=== PATIENT | male | born 1975 | race Caucasian/White ===

== ENCOUNTER → 2021-12-06 | Outpatient (CLI) | payer OTHER ==
[~2021-12-06] MED LIST: Advil200 M1 PO; BENADRYL25 MG PO; FISH OIL 1,0001 EAC1 PO; Flomax0.4 MG PO; Norco 5-325 Ta1 EACH PO; PROBIOTIC1 EAC1 PO; Zofran Odt8 MG SL
== END | disposition home or self-care (01) ==
LOC: LAB 12:45 → LAB SHORT 12:45
DX: R10.9 Unspecified abdominal pain (principal)
CPT/HCPCS: 87086

== ENCOUNTER 2024-01-04 08:01 | Inpatient (IN) | payer OTHER ==
[~2024-01-04] VITALS: Ht 185.4 cm; Wt 88.5 kg
[2024-01-04 08:50] LABS: EOSINOPHILS ABSOLUTE AUTO 0.01 K/mm3 (0.00-0.68); EOSINOPHILS PERCENT AUTO 0 % (0-6); Hematocrit 48.5 % (37.0-53.0); Hemoglobin 16.7 g/dL (13.5-17.5); IMMATURE GRAN ABSOLUTE AUTO 0.57 K/mm3 (0.00-0.10); IMMATURE GRAN PERCENT AUTO 1 % (0-1); LYMPHOCYTES ABSOLUTE AUTO 1.17 K/mm3 (0.84-5.20); LYMPHOCYTES PERCENT AUTO 2 % (21-46); MONOCYTES ABSOLUTE AUTO 3.27 K/mm3 (0.16-1.47); MONOCYTES PERCENT AUTO 6 % (4-13); Mean Corpuscular HGB 30.3 pg (26.0-34.0); Mean Corpuscular HGB Conc 34.4 g/dL (31.5-36.5); Mean Corpuscular Volume 88 fL (80-100); Mean Platelet Volume 11.4 fL (9.1-12.4); NEUTROPHILS ABSOLUTE AUTO 45.67 K/mm3 (1.96-9.15); NEUTROPHILS PERCENT AUTO 90 % (41-73); Platelet Count 351 K/mm3 (150-400); RDW Coefficient Variation 13.4 % (11.7-14.2); RDW Standard Deviation 43.5 fL (35.1-46.3); Red Blood Cell Count 5.51 M/mm3 (4.30-5.90)
[2024-01-04 08:52] LABS: BASOPHILS ABSOLUTE AUTO 0.05 K/mm3 (0.00-0.23); BASOPHILS PERCENT AUTO 0 % (0-2)
[2024-01-04 08:53] LABS: White Blood Cell Count 50.74 K/mm3 (4.00-11.30)
[2024-01-04] MEDS ORDERED: NS 1,000 ML IV SCH ×4 (08:55→15:00)
[2024-01-04 09:04] LABS: Ethanol (Alcohol), Blood, Med <3 mg/dL; Salicylate 2.2 mg/dL (2.8-20.0)
[2024-01-04 09:06] LABS: Alanine Aminotransfer (ALT/SGP 38 U/L (12-78); Albumin, Blood 4.3 g/dL (3.4-5.0); Albumin/Globulin Ratio 1.3 (0.8-1.8); Alk Phos 96 U/L (50-136); Anion Gap 18 mmol/L (3-11); Aspartate Aminotrans (AST/SGOT 139 U/L (12-37); Bilirubin, Total 1.1 mg/dL (0.1-1.0); Blood Urea Nitrogen 20 mg/dL (8-24); Bun/Creatinine Ratio 14.1 (12.0-20.0); CO2, Blood 21 mmol/L (21-32); Calcium, Blood 9.5 mg/dL (8.5-10.1); Chloride, Blood 108 mmol/L (98-108); Creatinine, Blood 1.42 mg/dL (0.60-1.20); Globulin, Blood 3.3 g/dL (2.2-4.0); Glomerular Filtration Rate 61 (60-); Glucose, Blood 117 mg/dL (70-99); Potassium, Blood 4.2 mmol/L (3.5-5.5); Sodium, Blood 143 mmol/L (136-145); Total Protein, Blood 7.6 g/dL (6.4-8.2)
[2024-01-04 09:07] LABS: Acetaminophen, Random <2.0 ug/mL (10.0-30.0)
[2024-01-04 09:09] LABS: BAND PERCENT MAN 9 % (0-8); BASOPHILS PERCENT MAN 0 % (0-2); EOSINOPHILS PERCENT MAN 0 % (0-6); LYMPHOCYTES ABSOLUTE MAN 1.01 K/mm3 (0.84-5.20); LYMPHOCYTES PERCENT MAN 2 % (21-46); METAMYELOCYTE PERCENT MAN 1 % (0-0); MONOCYTES ABSOLUTE MAN 1.01 K/mm3 (0.16-1.47); MONOCYTES PERCENT MAN 2 % (4-13); SEG NEUTROPHILS PERCENT MAN 86 % (41-73); TOTAL CELLS COUNTED 100
[2024-01-04 11:15] LABS: U Amphetamine Screen Not Detected; U Barbituate Screen Not Detected; U Benzodiazapine Screen Not Detected; U Buprenorphine Screen Not Detected; U Cannabinoids Screen DETECTED; U Cocaine Screen Not Detected; U Methadone Screen Not Detected; U Methamphetamine Screen Not Detected; U Opiates Screen Not Detected; U Oxycodone Screen Not Detected; U Phencyclidine Screen Not Detected
[2024-01-04] MEDS ORDERED: Piperacillin/Tazobactam Sod 4.5 GM in NS 100 ML IV ONE (11:45)
[2024-01-04 12:57] LABS: Source, Urine Clean Catch
[2024-01-04] MEDS ORDERED: Ondansetron HCl 2 MG / ML 2ML Vial IV ONE (13:00)
[2024-01-04] MEDS ORDERED: Lactated Ringer's 1,000 ML IV SCH (13:00)
[2024-01-04 13:01] LABS: Appearance, Urine Hazy (Clear); Bilirubin, Urine Neg (Neg); Blood, Urine 5+ (Neg); Color, Urine Amber (P-Yellow); Glucose Qualitative, Urine Neg (Neg); Ketones, Urine 3+ (Neg); Leukocyte Esterase, Urine 1+ (Neg); Nitrite, Urine Neg (Neg); Protein, Urine 3+ (Neg); Urobilinogen, Urine NORM (Normal)
[2024-01-04 13:17] LABS: Amorphous Heavy (0-Heavy); Bacteria Few /hpf; Mucus Light (0-Heavy); Squamous Epithelial Cells Many /hpf (Few)
[2024-01-04] MEDS ORDERED: TraMADol HCl 50 MG Tab PO PRN (14:55)
[2024-01-04] MEDS ORDERED: Ondansetron 4 MG TAB PO PRN (15:00)
[2024-01-04] MEDS ORDERED: Ondansetron HCl 2 MG / ML 2ML Vial IV PRN (15:00)
[2024-01-04] MEDS ORDERED: Acetaminophen 325 MG TABLET PO PRN (15:00)
[2024-01-04] MEDS ORDERED: Ketorolac Tromethamine 15mg Vial IV PRN (15:10)
--- NOTE | 2024-01-04 15:36 | NUR ---
REPORT RECEIVED FROM ED RN AT 1520.
[2024-01-04 15:55] VITALS: BP 140/106
--- NOTE | 2024-01-04 16:06 | NUR ---
PT ARIVED TO PCU AT 1345 VIA GURNEY AND ON RA. PT ABLE TO TRANSFER FROM GURNEY TO BED AND BOOST HIMSELF UP. PT REPORTED DISCOMFORT TO HIS EYES STATING THAT THEY "HURT AND FEEL LIKE THEY ARE DRY AND SOMETING IS IN THEM." WARM WASH CLOTH PROVIDED FOR COMFORT. PT HAS SIGNIFICANT AMOUNT OF WOUNDS, PT INFORMED OF PHOTOS NEEDING TO BE TAKE, PT AGREEABLE. PT REQUESTED THIS RN TO CONTACT EX TO JOSE FOR HIS DENTURES AT THE PLACE HE INTITIALLY FELL INTO THE R[place]. THIS RN ATTEMPTED TO CALL, NO ANSWER. PT REPORTS CHEST PAIN WHEN TAKING IN DEEP BREATH. NO SOB NOTED.
[2024-01-04] MEDS ORDERED: Piperacillin/Tazobactam Sod 3.375 GM in NS 100 ML IV SCH (18:00)
--- NOTE | 2024-01-04 18:26 | NUR ---
SHIFT SUMMARY PT A/OX4 AND COOPERATIVE OF CARE SINCE ARRIVING TO UNIT. VSS. NO ACUTE CHANGES SINCE ARRIVING TO UNIT. PT RESTING COMFORTABLY IN BED. SITTER PRESENT. PT PERSONAL BELONGINGS LOCKED UP IN BATHROOM AT THIS TIME.
[2024-01-04 19:29] VITALS: BP 127/87
[2024-01-04] MEDS ORDERED: Tobramycin/Dexameth Opth Susp 2.5 ML BOTHEYES SCH (20:00)
[2024-01-04] MEDS ORDERED: Famotidine 20 MG Tab PO SCH (21:00)
[2024-01-04 23:06] VITALS: BP 122/81
[2024-01-05 03:13] VITALS: BP 128/86
[2024-01-05 04:44] LABS: BASOPHILS ABSOLUTE AUTO 0.06 K/mm3 (0.00-0.23); BASOPHILS PERCENT AUTO 0 % (0-2); EOSINOPHILS PERCENT AUTO 0 % (0-6); Hematocrit 39.5 % (37.0-53.0); Hemoglobin 13.4 g/dL (13.5-17.5); IMMATURE GRAN ABSOLUTE AUTO 0.13 K/mm3 (0.00-0.10); IMMATURE GRAN PERCENT AUTO 1 % (0-1); LYMPHOCYTES ABSOLUTE AUTO 1.47 K/mm3 (0.84-5.20); LYMPHOCYTES PERCENT AUTO 5 % (21-46); MONOCYTES ABSOLUTE AUTO 1.51 K/mm3 (0.16-1.47); MONOCYTES PERCENT AUTO 6 % (4-13); Mean Corpuscular HGB 30.2 pg (26.0-34.0); Mean Corpuscular HGB Conc 33.9 g/dL (31.5-36.5); Mean Corpuscular Volume 89 fL (80-100); Mean Platelet Volume 11.7 fL (9.1-12.4); NEUTROPHILS ABSOLUTE AUTO 24.07 K/mm3 (1.96-9.15); NEUTROPHILS PERCENT AUTO 88 % (41-73); Platelet Count 199 K/mm3 (150-400); RDW Coefficient Variation 13.2 % (11.7-14.2); RDW Standard Deviation 43.6 fL (35.1-46.3); Red Blood Cell Count 4.43 M/mm3 (4.30-5.90); White Blood Cell Count 27.24 K/mm3 (4.00-11.30)
--- NOTE | 2024-01-05 05:18 | NUR ---
SHIFT SUMMARY PT A&OX4, ABLE TO MAKE NEEDS KNOWN, COOPERATIVE WITH CARES. PT DENIES SI THIS SHIFT. VSS, AFEBRILE, SPO2 >92% ON RA, TELE SHOWS SR/ ST 90'S-110'S. PT DENIES CP OR SOB. ASSISTED PT WITH AMBULATING TO RESTROOM THIS SHIFT. HE REPORTS PAIN OF KNEES, FEET, EYES, MEDICATED PER EMAR. 1:1 SITTER PRESENT IN ROOM. PERSONAL BELONGINGS REMAIN LOCKED IN BATHROOM. PT IS RESTING QUIETLY IN BED, CALL LIGHT WITHIN REACH, BREATHING EVEN AND UNLABORED.
[2024-01-05 06:04] LABS: Albumin, Blood 3.2 g/dL (3.4-5.0); Albumin/Globulin Ratio 1.3 (0.8-1.8); Bun/Creatinine Ratio 19.9 (12.0-20.0); Calcium, Blood 8.3 mg/dL (8.5-10.1); Creatinine, Blood 1.81 mg/dL (0.60-1.20); Globulin, Blood 2.5 g/dL (2.2-4.0); Potassium, Blood 4.6 mmol/L (3.5-5.5); Total Protein, Blood 5.7 g/dL (6.4-8.2)
[2024-01-05 07:54] VITALS: BP 112/81
[2024-01-05] MEDS ORDERED: Heparin Sodium,Porcine 5,000 UNIT/0.5 ML SDV SC SCH (09:00)
[2024-01-05 11:21] VITALS: BP 105/71
[2024-01-05 11:26] LABS: Glutamyl Transpeptidase, GGT 15 U/L (15-85)
[2024-01-05 15:34] VITALS: BP 114/81
--- NOTE | 2024-01-05 17:10 | NUR ---
SHIFT SUMMARY PT A/OX4 AND COOPERATIVE OF CARE. PT ABLE TP EXPRESS NEEDS. PT INDEPENDENT IN BED AND SBA FOR AMBULATION FOR LINE MANAGEMENT AND 1:1 SITTER. NO REPORT OF CHEST PAIN/PRESSURE THROUGHOUT SHIFT. VSS THROUGHOUT SHIFT. NO REPORT OF SOB/DYSPNEA THROUGHOUT SHIFT. PT LEFT HAND SWELLING INCREASED, MD ORDER LEFT HAND XRAY. PT SEEN BY PSYCH MD, PT TO REMAIN HIGH SI RISK AND WILL BE ADMITTED TO BHU AFTER PT IS MEDICALLY STABLE PER PSYCH MD. NS RUNNING PER ORDER. PT PO INTAKE DECENT BUT PT IS VERY PARTICULAR OF WHT HE IS WILLING TO EAT. PT DENTURES WERE "LOST AT [place] BEFORE BEING FOUND."
[2024-01-05 20:05] VITALS: BP 113/80
[2024-01-06] VITALS (7 sets, daily range): BP systolic 112–154; BP diastolic 73–102
--- NOTE | 2024-01-06 04:32 | NUR ---
SHIFT SUMMARY. SHIFT HAS BEEN UNREMARKABLE. AOX4, PLEASANT, COOPERATIVE WITH CARE, CALLS APPROPRIATELY FOR ASSISTANCE, ABLE TO MAKE NEEDS KNOWN. 1:[address] THROUGHOUT SHIFT. CONTINUES TO ENDORSE BROAD PAIN, PRIMARILY IN LEFT EYE AND HAND WELL LEGS. HAS BEEN WELL MANAGED THUS FAR VIA EMAR. VITALS STABLE. CONTINUES TO RUN SINUS. HAS BEEN ABLE TO REST COMFORTABLY THROUGHOUT SHIFT. ABX ADMINISTERED ON SCHEDULE WITHOUT DIFFICULTY. RISK MITIGATION COMPLETED Q4 PER PROTOCOL. STEADY SBA TRANSFER TO BATHROOM, CALLS APPROPRIATELY FOR ASSISTANCE. OBSERVATION CONTINUES WHILE IN BATHROOM. BED LOCKED IN LOWEST POSITION. 1:[address] CONTINUING TO MONITOR.
[2024-01-06] MEDS ORDERED: Lactobacil 2-S.Thermo-Bifido 1 1 Cap PO SCH (09:00)
[2024-01-06 09:22] LABS: Albumin, Blood 2.9 g/dL (3.4-5.0); Albumin/Globulin Ratio 1.1 (0.8-1.8); Bilirubin, Direct 0.2 mg/dL (0.0-0.3); Bilirubin, Indirect 0.6 mg/dL (0.1-0.7); Bilirubin, Total 0.8 mg/dL (0.1-1.0); Globulin, Blood 2.7 g/dL (2.2-4.0); Total Protein, Blood 5.6 g/dL (6.4-8.2)
[2024-01-06] MEDS ORDERED: BusPIRone HCl 5 MG Tab PO SCH (10:10)
[2024-01-06] MEDS ORDERED: POLYMYX LEFTEYE SCH (16:00)
[2024-01-06] MEDS ORDERED: [UNRECOGNIZED DRUG - OTHER] LEFTEYE SCH (16:00)
[2024-01-06] MEDS ORDERED: NEOMYCIN LEFTEYE SCH (16:00)
--- NOTE | 2024-01-06 18:24 | NUR ---
SHIFT SUMMARY PT A&O TO PERSON, PLACE, TIME, AND SITUATION. FOLLOWS COMMANDS AND HAS BEEN MOSTLY COMPLIANT WITH CARE. AT APPROXIMATLY 1540 PT BECAME CONVINCED THAT THE LENS OF HIS LT EYE WAS COMING OFF, PT REPORTED SEEING IT IN THE MIRROR, AND HAVING LASIK SURGURY INCREASING HIS RISK FOR IS LENS COMING OFF. PT DENIES CONTACT LENSES, PT DENIED WANTING HIS EYES TO BE FLUSHES THAT "COULD CAUSE THE LENS TO COMPETELY COME OFF", PT ALSO REFUSED EYE DROPS FOR THE 1600 DOSE STATING THEY WERE NOT WORKING, THIS RN LOOKED AT PT LT EYE AND APPEARS TO HAVE A SRATCH IN THE CENTER OVER THE PUPIL AREA, PT DID NOT AGREE WITH THIS AND WANTED ANTOHER OPINION, DR. PARK WAS CONTACTED AND NEW ORDERS PLACED. PT INFORMED OF NEW ORDERS AND WAS WILLING TO TAKE NEW ORDERS AND EYE DROPS THAT WERE PREVIOUSLY REFUSED, PT INFORMED THAT IF EYE CONTINUES TO BOTHER HIM DESPITE TREATMENT COME SUNDAY 01/07 WE COULD POTENTIALLY CONSULT SPRING COILER HAND WE DO NOT HAVE ONE DURING THE WEEKEND. PT LEFT FOR HEAD CT AT APPOXIMATLY 1740 VIA WHEEL CHAIR, 1:1 SITTER FOLLOWED PT BACK TO CT. PT RETURNED TO ROOM APPROXIMATLY 1800 WITH 1:1 SITTER. NO ACUTE CHANGES THIS SHIFT, BED LOWEST POSTION. AWAITING TO GIVE REPORT TO ON COMMING RN. AT APPROXIMATLY
[2024-01-07 01:32] VITALS: BP 151/85
--- NOTE | 2024-01-07 01:46 | NUR ---
transfer note. pt transferred to medical floor at about ~0130. report given to receiving nurse. pt educated on indication for transfer and voiced understanding. personal belongings given to medical floor staff. 1:1 sitter travelled and stayed with patient on transfer. pt was pleasant and agreeable with transfer.
[2024-01-07 05:30] LABS: BASOPHILS ABSOLUTE AUTO 0.04 K/mm3 (0.00-0.23); BASOPHILS PERCENT AUTO 0 % (0-2); EOSINOPHILS PERCENT AUTO 1 % (0-6); Hematocrit 33.5 % (37.0-53.0); IMMATURE GRAN ABSOLUTE AUTO 0.05 K/mm3 (0.00-0.10); IMMATURE GRAN PERCENT AUTO 0 % (0-1); LYMPHOCYTES ABSOLUTE AUTO 1.82 K/mm3 (0.84-5.20); LYMPHOCYTES PERCENT AUTO 15 % (21-46); MONOCYTES ABSOLUTE AUTO 0.71 K/mm3 (0.16-1.47); MONOCYTES PERCENT AUTO 6 % (4-13); Mean Corpuscular HGB Conc 32.8 g/dL (31.5-36.5); Mean Corpuscular Volume 91 fL (80-100); Mean Platelet Volume 11.7 fL (9.1-12.4); NEUTROPHILS ABSOLUTE AUTO 9.66 K/mm3 (1.96-9.15); NEUTROPHILS PERCENT AUTO 78 % (41-73); Platelet Count 175 K/mm3 (150-400); RDW Coefficient Variation 13.3 % (11.7-14.2); RDW Standard Deviation 44.6 fL (35.1-46.3); Red Blood Cell Count 3.67 M/mm3 (4.30-5.90); White Blood Cell Count 12.38 K/mm3 (4.00-11.30)
[2024-01-07] MEDS ORDERED: LORazepam 2 MG/ML 1ML Injection IV ONE ×2 (05:30→21:20)
[2024-01-07 05:50] LABS: Albumin, Blood 2.8 g/dL (3.4-5.0); Albumin/Globulin Ratio 1.1 (0.8-1.8); Bilirubin, Total 0.9 mg/dL (0.1-1.0); Calcium, Blood 8.7 mg/dL (8.5-10.1); Creatinine, Blood 1.59 mg/dL (0.60-1.20); Globulin, Blood 2.6 g/dL (2.2-4.0); Potassium, Blood 4.4 mmol/L (3.5-5.5); Total Protein, Blood 5.4 g/dL (6.4-8.2)
[2024-01-07 07:26] VITALS: BP 135/89
[2024-01-07 15:55] VITALS: BP 153/86
--- NOTE | 2024-01-07 18:33 | NUR ---
VSS, A-Ox4, denies any pain, denies SOB, ambulates independently, on RA. Lungs diminished, heart regular, bowel sounds normaitive, 1-1 sitter for SI, multuple abrasions and bruies all over body. Pt can make needs known, call oakes in hand, bed in lowest position.
[2024-01-07 20:16] VITALS: BP 147/92
[2024-01-08] MEDS ORDERED: LORazepam 2 MG/ML 1ML Injection ONE (00:17)
[2024-01-08 03:12] VITALS: BP 119/85
[2024-01-08 05:27] LABS: BASOPHILS ABSOLUTE AUTO 0.05 K/mm3 (0.00-0.23); BASOPHILS PERCENT AUTO 1 % (0-2); EOSINOPHILS ABSOLUTE AUTO 0.27 K/mm3 (0.00-0.68); EOSINOPHILS PERCENT AUTO 3 % (0-6); Hematocrit 30.4 % (37.0-53.0); Hemoglobin 10.4 g/dL (13.5-17.5); IMMATURE GRAN ABSOLUTE AUTO 0.03 K/mm3 (0.00-0.10); IMMATURE GRAN PERCENT AUTO 0 % (0-1); LYMPHOCYTES ABSOLUTE AUTO 1.19 K/mm3 (0.84-5.20); LYMPHOCYTES PERCENT AUTO 12 % (21-46); MONOCYTES ABSOLUTE AUTO 0.77 K/mm3 (0.16-1.47); MONOCYTES PERCENT AUTO 7 % (4-13); Mean Corpuscular HGB 30.3 pg (26.0-34.0); Mean Corpuscular HGB Conc 34.2 g/dL (31.5-36.5); Mean Corpuscular Volume 89 fL (80-100); Mean Platelet Volume 11.6 fL (9.1-12.4); NEUTROPHILS ABSOLUTE AUTO 8.06 K/mm3 (1.96-9.15); NEUTROPHILS PERCENT AUTO 78 % (41-73); Platelet Count 183 K/mm3 (150-400); RDW Coefficient Variation 13.2 % (11.7-14.2); RDW Standard Deviation 42.9 fL (35.1-46.3); Red Blood Cell Count 3.43 M/mm3 (4.30-5.90); White Blood Cell Count 10.37 K/mm3 (4.00-11.30)
[2024-01-08 06:03] LABS: Albumin, Blood 2.6 g/dL (3.4-5.0); Bilirubin, Total 1.1 mg/dL (0.1-1.0); Bun/Creatinine Ratio 13.8 (12.0-20.0); Calcium, Blood 9.1 mg/dL (8.5-10.1); Creatinine, Blood 1.52 mg/dL (0.60-1.20); Globulin, Blood 2.6 g/dL (2.2-4.0); Potassium, Blood 4.3 mmol/L (3.5-5.5); Total Protein, Blood 5.2 g/dL (6.4-8.2)
[2024-01-08 07:28] VITALS: BP 120/69
[2024-01-08 15:20] VITALS: BP 144/76
--- NOTE | 2024-01-08 18:33 | NUR ---
VSS, A-Ox4, denies SOB, denies any pain, ambulates Independently, on RA, 1-1 sitter for SI. Lungs clear, heart regular, bowel sounds normative, content of 2x BM, pt states dark tary stools, stool sample sent for occult stool per order. Pt can make needs known, call oakes in hand, bed in lowest position, safety ensured.
[2024-01-08 19:38] VITALS: BP 146/86
[2024-01-09 03:39] VITALS: BP 140/85
--- NOTE | 2024-01-09 05:15 | NUR ---
SHIFT SUMMARY. PATIENT IS A&OX4. NO ACUTE CHANGES. PATIENT IS ABLE TO MAKE HIS NEEDS KNOWN. PATIENT INDEPENDENTLY WALKS IN ROOM W/O ASSISTANCE-BATHROOM IS OPENED FOR PATIENT AND STAFF REMAIN IN VIEW OF PATIENT D/T HIGH GRADE SI. PATIENT IS PLEASANT, WITHDRAWN AFFECT AT TIMES. PATIENT C/O PAIN-MEDICATED PER EMAR X1 WITH PATIENT REPORTS OF IMPROVEMENT OF PAIN. PATIENT C/O NAUSEA-MEDICATED PER EMAR X1 WITH NOTED RELIEF. PATIENT HAS TELE ON WITH LEADS IN PLACE-NO EVENTS NOTED THIS SHIFT. PATIENT HAS 1:1 SITTER AJIT. BED IS LOCKED IN THE LOWEST POSITION WITH CALL LIGHT IN REACH. CARE IS ONGOING
[2024-01-09 05:37] LABS: BASOPHILS ABSOLUTE AUTO 0.06 K/mm3 (0.00-0.23); BASOPHILS PERCENT AUTO 1 % (0-2); EOSINOPHILS ABSOLUTE AUTO 0.68 K/mm3 (0.00-0.68); EOSINOPHILS PERCENT AUTO 6 % (0-6); Hematocrit 32.4 % (37.0-53.0); Hemoglobin 10.9 g/dL (13.5-17.5); IMMATURE GRAN ABSOLUTE AUTO 0.08 K/mm3 (0.00-0.10); IMMATURE GRAN PERCENT AUTO 1 % (0-1); LYMPHOCYTES ABSOLUTE AUTO 1.23 K/mm3 (0.84-5.20); LYMPHOCYTES PERCENT AUTO 11 % (21-46); MONOCYTES ABSOLUTE AUTO 0.91 K/mm3 (0.16-1.47); MONOCYTES PERCENT AUTO 8 % (4-13); Mean Corpuscular HGB 29.8 pg (26.0-34.0); Mean Corpuscular HGB Conc 33.6 g/dL (31.5-36.5); Mean Corpuscular Volume 89 fL (80-100); Mean Platelet Volume 11.2 fL (9.1-12.4); NEUTROPHILS ABSOLUTE AUTO 8.29 K/mm3 (1.96-9.15); NEUTROPHILS PERCENT AUTO 74 % (41-73); Platelet Count 198 K/mm3 (150-400); RDW Coefficient Variation 13.2 % (11.7-14.2); RDW Standard Deviation 42.5 fL (35.1-46.3); Red Blood Cell Count 3.66 M/mm3 (4.30-5.90); White Blood Cell Count 11.25 K/mm3 (4.00-11.30)
[2024-01-09 06:02] LABS: Albumin, Blood 2.7 g/dL (3.4-5.0); Bun/Creatinine Ratio 14.5 (12.0-20.0); Calcium, Blood 9.2 mg/dL (8.5-10.1); Creatinine, Blood 1.45 mg/dL (0.60-1.20); Globulin, Blood 2.7 g/dL (2.2-4.0); Potassium, Blood 4.1 mmol/L (3.5-5.5); Total Protein, Blood 5.4 g/dL (6.4-8.2)
[2024-01-09 07:30] VITALS: BP 147/78
[2024-01-09 11:04] LABS: Stool Occult Blood Guaiac 1 Neg (Neg)
[2024-01-09] MEDS ORDERED: Bacitracin Ointment 30 GM TOP SCH (12:45)
[2024-01-09] MEDS ORDERED: LORazepam 0.5 MG Tab PO PRN (12:45)
[2024-01-09] MEDS ORDERED: Bacitracin Zinc Oint 1GRAM UD Packet TOP SCH ×2 (13:17→14:20)
[2024-01-09 15:15] VITALS: BP 150/85
--- NOTE | 2024-01-09 18:20 | NUR ---
VSS, denies SOB, denies any pain, A-Ox4, ambulates independently, on RA, 1-1 sitter for SI. Lungs clear, heart regular, bowel sounds normative, had 2x soft BMs during shift, pt has multple abraisions all over body, bacticin, non-adhenet derrick and kerlex over open abrasion on Bileral knees. Pt can make needs known, call oakes in hand, bed in lowest position.
[2024-01-09 19:25] VITALS: BP 167/88
[2024-01-09] MEDS ORDERED: diphenhydrAMINE HCl 12.5 MG/5 ML 5MLUDC (Alcohol/Dye Free) PO PRN (20:55)
[2024-01-09] MEDS ORDERED: DiphenhydrAMINE HCL 25 MG Cap PO PRN (22:25)
[2024-01-10 02:17] VITALS: BP 148/80
--- NOTE | 2024-01-10 04:50 | NUR ---
SHIFT SUMMARY AXOX 4 AND INDEPENDENT IN ROOM. SITTER 1:1 FOR SI. NO EVENTS. DENIES CHEST PAIN, SOB, AND N/V. REPORTED GENERAL ITCHING AND HOSPITALIST DR TORREZ ORDERED BENADRYL 25 MG Q6 PRN AND GIVEN. PIV INTACT. NS INFUSING @ 125 mL/HR. IV ABX INFUSED. PO ATIVAN 0.5 MG GIVEN FOR INSOMNIA. DRESSINGS TO BLE KNEES INTACT. COOPERATIVE WITH CARE. CALL LIGHT IN REACH. BED IN LOWEST POSITION. WILL CONTINUE TO MONITOR UNTIL DAY SHIFT NURSE ASSUMES CARE.
[2024-01-10 06:18] LABS: BASOPHILS ABSOLUTE AUTO 0.06 K/mm3 (0.00-0.23); BASOPHILS PERCENT AUTO 1 % (0-2); EOSINOPHILS PERCENT AUTO 8 % (0-6); Hematocrit 31.6 % (37.0-53.0); Hemoglobin 10.7 g/dL (13.5-17.5); IMMATURE GRAN ABSOLUTE AUTO 0.11 K/mm3 (0.00-0.10); IMMATURE GRAN PERCENT AUTO 1 % (0-1); LYMPHOCYTES ABSOLUTE AUTO 1.18 K/mm3 (0.84-5.20); LYMPHOCYTES PERCENT AUTO 9 % (21-46); MONOCYTES ABSOLUTE AUTO 1.13 K/mm3 (0.16-1.47); MONOCYTES PERCENT AUTO 9 % (4-13); Mean Corpuscular HGB 30.2 pg (26.0-34.0); Mean Corpuscular HGB Conc 33.9 g/dL (31.5-36.5); Mean Corpuscular Volume 89 fL (80-100); Mean Platelet Volume 11.7 fL (9.1-12.4); NEUTROPHILS ABSOLUTE AUTO 9.53 K/mm3 (1.96-9.15); NEUTROPHILS PERCENT AUTO 73 % (41-73); Platelet Count 206 K/mm3 (150-400); RDW Coefficient Variation 13.4 % (11.7-14.2); RDW Standard Deviation 44.3 fL (35.1-46.3); Red Blood Cell Count 3.54 M/mm3 (4.30-5.90); White Blood Cell Count 13.01 K/mm3 (4.00-11.30)
[2024-01-10 06:38] LABS: Albumin, Blood 2.5 g/dL (3.4-5.0); Bilirubin, Total 0.8 mg/dL (0.1-1.0); Bun/Creatinine Ratio 12.2 (12.0-20.0); Calcium, Blood 8.9 mg/dL (8.5-10.1); Creatinine, Blood 1.39 mg/dL (0.60-1.20); Globulin, Blood 2.6 g/dL (2.2-4.0); Total Protein, Blood 5.1 g/dL (6.4-8.2)
[2024-01-10 07:41] VITALS: BP 143/77
--- NOTE | 2024-01-10 17:04 | NUR ---
SUMMARY- PT A/O X4, VERBAL AND COMMUNACATIVE. 1:1 SITTER FOR S.I. PT ABLE TO TALK ABOUT THE EVENT AND RELIVES HOW MANY EVENTS BUILT UP FOR HIM TO FEEL TOTALLY HOPELESS. HE STATES HE DOESN'T FEEL THE DESIRE TO END HIS LIFE ANY MORE. FEELING HOPEFUL. PT HAS VERY PERTICULAR FOOD PREFRENCES AND LOST HIS TEETH SO ONLY ABLE TO EAT MASHED POTATIES AND OATMEAL. TAKING IN FLUIDS. WILL DC FLUIDS AFTER THIS LAST BAG. PT HAS A RASH OVER WHOLE BODY, RED PATCHY RAISED AND ITCHY. PT STATES IT STARTED YESTERDAY AFTERNOON, APPEARS POISON OAK BUT WOULDN'T MAKE SENSE WITH THE TIME FRAME. CALLED DR PUTNAM AND HE DC'D ABS. BENEDRYL ORDERED AND ADMINISTERED. PT NAPPED A LITTLE THIS AFTERNOON AFTER BENEDRYL DOSE. PLAN TO DC TO [facility] TOMORROW LABS PENDING.
[2024-01-10 18:44] VITALS: BP 145/74
[2024-01-10 19:22] VITALS: BP 176/92
[2024-01-11 03:19] VITALS: BP 144/78
--- NOTE | 2024-01-11 05:14 | NUR ---
SHIFT SUMMARY PATIENT ALERT AND ORIENTED TIMES 4. ROOM AIR. ON SI PRECAUTION. ATTEMPTED SUICIDE WITH OVER-DOSE OF SLEEPING PILLS AND ALMOST DROWNING IN THE [place]. ADMITTED FOR SEPSIS, AND RHABDOMYOLYSIS. PATIENT IS FULL CODE. PATIENT TOOK HS MEDICATION PER ORDER. PATIENT REQUESTED BENADRYL FOR ITCHING. PATIENT IS POLITE AND RECEPTIVE TO CARE. PATIENT STATES LEFT EYE VISION IS VERY BLURRY AND WAS HOPING THAT A DR COULD EXAMINE HIM. PATIENT ON TELE SINUS RHYTHM AT 68
[2024-01-11 06:02] LABS: BASOPHILS ABSOLUTE AUTO 0.04 K/mm3 (0.00-0.23); BASOPHILS PERCENT AUTO 0 % (0-2); EOSINOPHILS PERCENT AUTO 8 % (0-6); Hematocrit 32.9 % (37.0-53.0); Hemoglobin 11.3 g/dL (13.5-17.5); IMMATURE GRAN ABSOLUTE AUTO 0.13 K/mm3 (0.00-0.10); IMMATURE GRAN PERCENT AUTO 1 % (0-1); LYMPHOCYTES ABSOLUTE AUTO 1.25 K/mm3 (0.84-5.20); LYMPHOCYTES PERCENT AUTO 9 % (21-46); MONOCYTES PERCENT AUTO 10 % (4-13); Mean Corpuscular HGB 30.8 pg (26.0-34.0); Mean Corpuscular HGB Conc 34.3 g/dL (31.5-36.5); Mean Corpuscular Volume 90 fL (80-100); NEUTROPHILS ABSOLUTE AUTO 9.82 K/mm3 (1.96-9.15); NEUTROPHILS PERCENT AUTO 72 % (41-73); Platelet Count 243 K/mm3 (150-400); RDW Coefficient Variation 13.6 % (11.7-14.2); Red Blood Cell Count 3.67 M/mm3 (4.30-5.90); White Blood Cell Count 13.64 K/mm3 (4.00-11.30)
[2024-01-11 06:32] LABS: Albumin, Blood 2.5 g/dL (3.4-5.0); Bilirubin, Total 0.6 mg/dL (0.1-1.0); Bun/Creatinine Ratio 10.7 (12.0-20.0); Creatinine, Blood 1.22 mg/dL (0.60-1.20); Globulin, Blood 2.6 g/dL (2.2-4.0); Total Protein, Blood 5.1 g/dL (6.4-8.2)
[2024-01-11 08:04] VITALS: BP 155/91
[2024-01-11] MEDS ORDERED: Nicotine 14 MG PATCH TOP SCH (09:18)
[2024-01-11] MEDS ORDERED: MethylPREDNISolone Sod Succ 40 MG VIAL IV ONE (11:05)
[2024-01-11 16:13] VITALS: BP 152/91
--- NOTE | 2024-01-11 17:10 | NUR ---
SHIFT SUMMARY: PT IS AN A&OX4/INDEPENDENT HERE FOR SI ATTEMPT. HE DOES NOT CURRENTLY HAVE ANY THOUGHTS OF SI; HE CONTINUES TO HAVE A 1:1 SITTER. HE IS PLEASANT AN COOPERATIVE WITH CARE, MAKES HIS NEEDS KNOWN. WAS ABLE TO LOCATE PAPERWORK/ORDER FOR A MD HOLD ON THE PATIENT. I MENTIONED THIS TO DR. PUTNAM, BUT NO NEW ORDERS AT THIS TIME. PATIENT HAS NOT ATTEMPTED TO LEAVE THE HOSPITAL. HE IS CURRENTLY IN BED, CALL LIGHT WITHIN REACH, NO SIGNS OR SYMPTOMS OF DISTRESS, PLAN OF CARE ONGOING.
[2024-01-11 20:13] VITALS: BP 176/85
[2024-01-11] MEDS ORDERED: DiphenhydrAMINE HCl 50 MG Cap PO PRN (23:40)
[2024-01-12 05:01] VITALS: BP 131/67
[2024-01-12 05:40] LABS: BASOPHILS ABSOLUTE AUTO 0.04 K/mm3 (0.00-0.23); BASOPHILS PERCENT AUTO 0 % (0-2); EOSINOPHILS ABSOLUTE AUTO 0.61 K/mm3 (0.00-0.68); EOSINOPHILS PERCENT AUTO 5 % (0-6); Hematocrit 31.3 % (37.0-53.0); Hemoglobin 10.8 g/dL (13.5-17.5); IMMATURE GRAN ABSOLUTE AUTO 0.11 K/mm3 (0.00-0.10); IMMATURE GRAN PERCENT AUTO 1 % (0-1); LYMPHOCYTES ABSOLUTE AUTO 1.63 K/mm3 (0.84-5.20); LYMPHOCYTES PERCENT AUTO 13 % (21-46); MONOCYTES ABSOLUTE AUTO 1.13 K/mm3 (0.16-1.47); MONOCYTES PERCENT AUTO 9 % (4-13); Mean Corpuscular HGB 30.6 pg (26.0-34.0); Mean Corpuscular HGB Conc 34.5 g/dL (31.5-36.5); Mean Corpuscular Volume 89 fL (80-100); Mean Platelet Volume 11.8 fL (9.1-12.4); NEUTROPHILS ABSOLUTE AUTO 8.86 K/mm3 (1.96-9.15); NEUTROPHILS PERCENT AUTO 72 % (41-73); Platelet Count 256 K/mm3 (150-400); RDW Coefficient Variation 13.7 % (11.7-14.2); RDW Standard Deviation 43.5 fL (35.1-46.3); Red Blood Cell Count 3.53 M/mm3 (4.30-5.90); White Blood Cell Count 12.38 K/mm3 (4.00-11.30)
--- NOTE | 2024-01-12 05:51 | NUR ---
SHIFT SUMMARY PATIENT ALERT AND ORIENTED TIMES 4. PATIENT TOOK HS MEDICATION PER EMAR. PATIENT REQUESTED BENADRYL FOR ITCHING. ABOUT TWO HOURS AFTER TAKING THE BENADRYL, HE WAS STILL ITCHING INTENSELY . CALLED SAFEMAKER DR AND INCREASED BENADRYL FROM 25MG TO 50MG Q8. PATIENT ALSO TOOK 0.5MG ATIVAN TO HELP WITH SLEEPING. PATIENT APPEARED TO SLEEP THROUGHOUT THE NIGHT WITHOUT ISSUES AFTER THAT. BED IN LOW POSITION, RAILS TIMES 3, AND CALL LIGHT WITHIN REACH.
[2024-01-12 06:06] LABS: Albumin, Blood 2.5 g/dL (3.4-5.0); Bilirubin, Total 0.6 mg/dL (0.1-1.0); Bun/Creatinine Ratio 9.5 (12.0-20.0); Calcium, Blood 8.6 mg/dL (8.5-10.1); Creatinine, Blood 1.16 mg/dL (0.60-1.20); Globulin, Blood 2.6 g/dL (2.2-4.0); Potassium, Blood 3.6 mmol/L (3.5-5.5); Total Protein, Blood 5.1 g/dL (6.4-8.2)
[2024-01-12 07:46] VITALS: BP 146/96
[2024-01-12] MEDS ORDERED: Triamcinolone acet. 0.5% Ointment 15 gm TOP PRN (08:00)
[2024-01-12] MEDS ORDERED: MethylPREDNISolone Sod Succ 40 MG VIAL IV SCH (09:00)
[2024-01-12 15:14] VITALS: BP 161/93
[2024-01-12] MEDS ORDERED: HyDROXyzine HCl 25 MG Tab PO PRN (17:50)
[2024-01-12] MEDS ORDERED: NS 1,000 ML IV SCH (17:50)
--- NOTE | 2024-01-12 18:11 | NUR ---
SHIFT SUMMARY: NO EVENTS OR CHANGES WITH THE PATIENT THROUGHOUT THE SHIFT. 1:1 SITTER, IN BED, CALL LIGHT WITHIN REACH, NO SIGNS OR SYMPTOMS OF DISTRESS, PLAN OF CARE ONGOING.
[2024-01-12] MEDS ORDERED: Linezolid 600MG/Iso-Dext 300ML 300 ML IV SCH (19:00)
[2024-01-12 19:11] VITALS: BP 162/92
[2024-01-12] MEDS ORDERED: HydrALAZINE HCl 20 MG / ML 1ML Vial IV PRN (20:15)
[2024-01-12] MEDS ORDERED: Lactobacil 2-S.Thermo-Bifido 1 1 Cap PO SCH (21:00)
[2024-01-13] MEDS ORDERED: DiphenhydrAMINE HCl 50 MG Cap PO PRN (00:25)
[2024-01-13 04:50] VITALS: BP 134/71
--- NOTE | 2024-01-13 05:51 | NUR ---
SHIFT SUMMARY PATIENT IS ALERT AND ORIENTED TIMES 4. OBTAINED NEW ORDER FOR HYDRALAZINE 10 MG Q6 PRN FOR SYSTOLIC > 160. GAVE ZYVOX 600MG/300MG @ 200ML/HR. ADMINISTERED KENALOG OINTMENT TO INFLAMED AND IRRITATED AREAS. PATIENT REPORTED FEELING BETTER. REPLACED BLANKET WITH SOFTER LESS HARSH ON SKIN BLANKET. PATIENT ABLE TO AMBULATE TO BATHROOM BY HIMSELF AND NOTIFIED STAFF WHEN DOING SO. OBTAINED NEW ORDER FOR BENADRYL 50MG Q6, AFTER USING KENTALOG. PATIENT STATED THAT HE DID HAVE SOME RELIEF FROM ITCHING WHEN THE KENALOG WAS APPLIED BUT THE ITCHING CAME BACK AFTER ABOUT THREE HOURS. AT 0500 TECHNICAL CLERK TOOK PATIENT BLOOD PRESSURE. AFTER COMPLETING BP PATIENTS ARM WAS EXTREMELY RED AND SWOLLEN. TOOK PHOTOS OF PATIENTS ARM AND PLACED IN CHART. ONLY RIGHT FOREARM WAS EFFECTED. BED IN LOW POSITION, RAILS ARE TIMES TWO.
[2024-01-13 06:04] LABS: BASOPHILS ABSOLUTE AUTO 0.06 K/mm3 (0.00-0.23); BASOPHILS PERCENT AUTO 0 % (0-2); EOSINOPHILS ABSOLUTE AUTO 0.95 K/mm3 (0.00-0.68); EOSINOPHILS PERCENT AUTO 7 % (0-6); Hematocrit 34.4 % (37.0-53.0); Hemoglobin 11.7 g/dL (13.5-17.5); IMMATURE GRAN ABSOLUTE AUTO 0.08 K/mm3 (0.00-0.10); IMMATURE GRAN PERCENT AUTO 1 % (0-1); LYMPHOCYTES ABSOLUTE AUTO 2.51 K/mm3 (0.84-5.20); LYMPHOCYTES PERCENT AUTO 18 % (21-46); MONOCYTES ABSOLUTE AUTO 1.12 K/mm3 (0.16-1.47); MONOCYTES PERCENT AUTO 8 % (4-13); Mean Corpuscular HGB 30.2 pg (26.0-34.0); Mean Corpuscular Volume 89 fL (80-100); Mean Platelet Volume 12.1 fL (9.1-12.4); NEUTROPHILS ABSOLUTE AUTO 9.06 K/mm3 (1.96-9.15); NEUTROPHILS PERCENT AUTO 66 % (41-73); Platelet Count 281 K/mm3 (150-400); RDW Coefficient Variation 14.1 % (11.7-14.2); RDW Standard Deviation 44.1 fL (35.1-46.3); Red Blood Cell Count 3.87 M/mm3 (4.30-5.90); White Blood Cell Count 13.78 K/mm3 (4.00-11.30)
[2024-01-13 06:26] LABS: Albumin, Blood 2.8 g/dL (3.4-5.0); Albumin/Globulin Ratio 0.9 (0.8-1.8); Bilirubin, Total 0.6 mg/dL (0.1-1.0); C-REACTIVE PROTEIN, EXT RANGE 1.18 mg/dL (0.000-0.300); Calcium, Blood 8.9 mg/dL (8.5-10.1); Creatinine, Blood 1.2 mg/dL (0.60-1.20); Magnesium, Blood 1.8 mg/dL (1.6-2.4); Phosphorus, Blood 2.7 mg/dL (2.5-4.9); Potassium, Blood 3.2 mmol/L (3.5-5.5); Total Protein, Blood 5.8 g/dL (6.4-8.2)
[2024-01-13 08:09] VITALS: BP 143/85
[2024-01-13] MEDS ORDERED: PredniSONE 20 MG Tab PO SCH (11:00)
[2024-01-13 15:57] VITALS: BP 152/86
[2024-01-13] MEDS ORDERED: HyDROXyzine HCl 25 MG Tab PO PRN (16:15)
--- NOTE | 2024-01-13 16:37 | NUR ---
SHIFT SUMMARY: PATIENT'S RASH REMAINS; ALMOST WAX AND WANES; RUE TIGHT SHINY SWOLLEN AND RED. PATIENT C/O ITCHING. NOTIFIED DR. YU OF PATIENT C/O RASH GETTING WORSE; RASH APPEARING MORE RED/ANGRY. GIVING PRNS AND TOPICALS AND STERIODS. PATIENT STATES THAT THE TRIAMCINOLONE ISN'T EFFECTIVE. SWITCHED TO HYDROXYZINE FROM BENADRYL SEE IF ITCHING IMPROVES; IF NOT PER DR. YU CAN SWITCH BACK BENADRYL. PATIENT STATES HOT SHOWERS HELP. PATIENT'S MOOD APPEARS TO BE STABLE; CONTINUES TO DENY SI. HE IS PLEASANT AND COOPERATIVE WITH CARE, 1:1 SITTER, IS CURRENTLY WALKING AROUND THE UNIT WITH THE SITTER. NO SIGNS OR SYMPTOMS OF DISTRESS, PLAN OF CARE ONGOING.
[2024-01-13] MEDS ORDERED: Enoxaparin 40 MG/0.4 ML SYR SC SCH (17:00)
[2024-01-13 19:31] VITALS: BP 144/85
[2024-01-13] MEDS ORDERED: NS 250 ML IV PRN (20:25)
--- NOTE | 2024-01-13 21:47 | NUR ---
SUICIDE ASSESSMENT COMPLETED FOR THIS SHIFT. PT DENIES SI/HI/AVH, AND CONTINUES ON 1:1 OBSERVATION BY THE SITTER. NO ACUTE DISTRESS NOTED/REPORTED DURING THIS SHIFT.
--- NOTE | 2024-01-14 03:05 | NUR ---
SHIFT SUMMARY PT HAS 1:1 OBSERVATION, NON-CLINICAL SITTER. PT IS PLEASANT, COOPERATIVE WITH CARE, A&O X4. PT DENIES SI/HI/AVH DURING THIS SHIFT. IV ABX INFUSED ORDERED. @HS, PT C/O ANXIETY, AND ITCHING/BURNING AROUND TORSO, UE'S, AND LE'S. PT STATED REDDNESS/RASH BEGAN ON PREVIOUS SHIFT WHEN "BP CUFF WAS PLACED ON MY ARM"(RIGHT ARM). REDDENED AREAS ON INTACT SKIN NOTED ON UE'S, LE'S AND ABDOMEN AREA. HYDROXYZINE 25MG PO PRN AND ATIVAN 0.5MG PO PRN ADMINISTERED WITH GOOD EFFECTIVNESS. PT INTERACTING WITH THE SITTER, AND APPEARED TO RELAXIING AT HS. PRN PO TYLENOL ADMINISTERED ORDERED. BED AT THE LOWEST POSITION, CALL LIGHT WITHIN REACH, SITTER BY THE DOORWAY. NO ACUTE EVENTS/DISTRESS DURING THIS SHIFT. PT IS ABLE TO MAKE HIS NEEDS KNOWN.
[2024-01-14 04:54] VITALS: BP 133/70
--- NOTE | 2024-01-14 05:21 | NUR ---
PT HAS SIGNIFICANT SWELLING AND MORE RED SKIN (COMPARED TO HS DURING THIS SHIFT,) ON HIS FACE AND UE'S. NOTED SWOLLEN EYE LIDS. PT DENIES SOB OR DIFFICULTY TO SWALLOW. PT REPORTS ITCHY SKIN. HYDROXYZINE 25MG PO PRN ADMINISTERED @0517. PT REPORTS HX OF C-DIFF, AND ABX THERAPY>4MONTHS. PT REPORTS RECEIVING MEDICAL CARE [place] STATE OF [place] AT THE TIME. PT REPORTS BECAME ALLERGIC TO MANY OF THE ABX'S WITH SIMILAR SX'S. @HS, ZYVOX 600MG/300MLS WAS INFUSED ORDERED@2100. WILL REPORT TO THE INCOMING SHIFT NURSE, IN ORDER TO PASS THE IMPORTANT INFORMATION FOR THE ROUNDING PROVIDER THIS AM. NO ACUTE DISTRESS REPORTED PER PT.
[2024-01-14 08:06] VITALS: BP 142/90
--- NOTE | 2024-01-14 10:04 | NUR ---
NURSE NOTE REVIEWED PREVIOUS RN NOTE. SPOKE WITH DR ABOUT IV ANTIBOTIC AND ASSESSED PATIENTS SWELLING FACE. DR SAID TO RESTART IV ABX. PATIENT COMPLAINED OF ADDITIONAL SWELLING AND STOPPED IV ABX AND GAVE ATARAX FOR REACTION. WILL CONFER THIS TO .
[2024-01-14 15:34] VITALS: BP 170/90
--- NOTE | 2024-01-14 16:36 | NUR ---
SHIFT SUMMARY PATIENT IS ALERT AND ORIENTED. PATIENT HAS BEEN IN SI PRECAUTIONS ALL SHIFT. ROOM HAS BEEN MITIGATED. PATIENTS FRIEND HAS COME AND WAS GIVEN PATIENTS KEYS TO MOVE PTS CAR TO SAFE PLACE. PATIENT CALLED AND SET THIS UP. PATIENT HAS HAD REACTION TO IV ABX AND CONFERRED WITH DR, SEE PRIOR NOTE. PATIENT HAS BEEN GIVEN MEDICATION FOR PAIN AND ITCHINESS. PATIENT DENIES ANY CURRENT PLAN FOR SI. BED IN LOCKED AND LOWEST POSITION. CALL LIGHT IN PLACE. WILL MONITOR UNTIL SHIFT CHANGE.
[2024-01-14 20:13] VITALS: BP 166/88
--- NOTE | 2024-01-14 20:31 | NUR ---
@2029 PT REFUSED HIS IV ABX SCHEDULED DOSE. PT C/O EARLIER DOSE INCREASED REDDNESS/SWELLING IN FACE, EYELIDS, RED RASH T/O UE'S. AUTOMOBILE RACER NOTIFIED. PER PT STATEMENT:" LET'S HOLD OFF THE ANTIBIOTICS, I ACTUALLY THINK THAT MY WHITE BLOOD CELL COUNT IS HIGH, BECAUSE OF IT."
--- NOTE | 2024-01-14 21:05 | NUR ---
NOTIFIED R/T PT REFUSING THE IV ABX SCHEDULED DOSE DURING THIS SHIFT. NO NEW ORDERS AT THIS TIME.
--- NOTE | 2024-01-14 21:59 | NUR ---
PT DENIES SI/HI/AVH. ANXIETY 01/08 PER PT REPORT, CRYING @2100. MEDICATED PER EMAR FOR ANXIETY. CONTINUING 1:1 SITTER FOR SAFETY. SITTER CHATTING WITH THE PT-CURRENTLY PT HAS ELEVATED MOOD: TALKATIVE, COOPERATIVE WITH CARE.
--- NOTE | 2024-01-15 03:20 | NUR ---
SHIFT SUMMARY PT CONTINUES TO HAVE 1:1 SITTER FOR SAFETY AND FOR SI PRECAUTIONS. @HS, PT TEARY AND REPORTS TO THIS CINDER PITMAN ANXIETY LEVEL OF 9/10. PT APPEARS WITHDRAWN. ATIVAN PRN PO 0.5MG ADMINISTERED ORDERED. PT C/O PRURITUS, HYDROXYZINE 25MG PO PRN ADMINISTERED X2 DURING THIS SHIFT.PT REFUSED IV ABX DURING THIS SHIFT. ON-CALL HOSPITALIST DR. MONET NOTIFIED (SEE PREVIOUS NOTE.) @HS PT REQUESTING TO GO GET HIMSELF FOOD/MEAL FROM A LOCAL RESTAURANT AND RETURN TO THE HOSPITAL. PT EDUCATED ON HIS RIGHTS AND RESPONSIBILITIES BY THIS CINDER PITMAN. PT C/O NOT HAVING DENTURES (HE THINKS LOST IN [place],) AND C/O NOT HAVING ANY NEW CHOICES FROM THE 3RD FLOOR PANTRY. PT APPEARING AGITATED. STAFF OFFERING HOT MEALS FROM THE HOSPITAL PANTRY WELL SNACKS AND SUPPLEMENTAL DRINKS. PT DECLINED. 1:1 SITTER IN THE ROOM BY THE BEDSIDE, AND CHATTING WITH THE PT. QUICK CHANGE IN MOOD (IMPROVED,) AND RAPID SPEECH NOTED. PT CHATTING >3HRS WITH THE SITTER. NO ACUTE EVENTS DURING THIS SHIFT. BED AT THE LOWEST POSITION, 1:1 SITTER IN THE ROOM FOR SAFETY. PT DENIES SI, HI AND AVH DURING THIS SHIFT.
[2024-01-15 06:22] VITALS: BP 138/83
[2024-01-15 07:28] VITALS: BP 164/88
--- NOTE | 2024-01-15 09:39 | NUR ---
PATIENT TOLD THIS RN HE WOULD LIKE TO DISCONTINUE HIS ANTIBIOTICS THE PRUITIS HE'S EXPERIENCING IS CAUSING HIM MORE DISCOMFORT THAN THE INFx THEY'RE FIXING.
[2024-01-15 14:53] VITALS: BP 128/81
[2024-01-15] MEDS ORDERED: ACET325 PO (15:41)
[2024-01-15] MEDS ORDERED: BACITRACIN ZIN1 EAC1 TOP (15:44)
[2024-01-15] MEDS ORDERED: FAMO20 PO (15:45)
[2024-01-15] MEDS ORDERED: HYDHCL25 PO (15:46)
[2024-01-15] MEDS ORDERED: NEOPOLBACB LEFTEYE (15:47)
[2024-01-15] MEDS ORDERED: Nicoderm Cq1 EAC1 TOP (15:48)
[2024-01-15] MEDS ORDERED: TOBRADEX ST EYE5 M1 BOTHEYES (15:51)
[2024-01-15] MEDS ORDERED: Triamcinolone A15 G4 TOP (15:54)
--- NOTE | 2024-01-15 19:25 | NUR ---
DAY SHIFT SUMMARY: A&Ox4. PLEASANT AND COOEPARTIVE WITH CARE. CALLS APPROPRIATELY AND IS ABLE TO ADVOCATE NEEDS EFFECTIVELY. TOLD THIS RN HE'D LIKE TO DC ABx TODAY D/T ASE FROM THEM. MEDICALLY CLEARED AND ACCEPTED TO U FOR TRANSFER ONCE BED BECOMES AVAILABLE; LIKELY TOMORROW. NO ACUTE CONCERNS OR EVENTS T/O SHIFT TODAY. BED IN LOWEST POSITION. CALL LIGHT WITHIN REACH. REPORT TO ONCOMING RN. ALL NEEDS MET.
[2024-01-15 19:40] VITALS: BP 161/95
--- NOTE | 2024-01-16 05:04 | NUR ---
SUMMARY: PT A/OX4, CALLS APPROPRIATELY TO SPECIFY NEEDS AND IS PLEASANT AND COOPERATIVE W/CARE. HE REMAINS ON SI PRECAUTIONS W/1:1 SITTER IN PROGRESS BUT DENIES CURRENT PLAN OR ACTIONS TO HARM SELF. HE'S MEDICALLY STABLE AND WILL LIKELY T/F TO U TODAY IF BED AVAILABLE. HE REPORTED MILD ANXIETY SO RECEIVED PO ATIVAN PRN FOR GOOD EFFECT. PT ALSO C/O ITCHING 2ND TO RASH FROM IV ABX REACTION AND WAS PROVIDED ATTARAX FOR RELIEF. NO ACUTE CHANGES, VSS/AFEBRILE. WCTM AND REPORT TO DAY RN.
[2024-01-16 05:43] VITALS: BP 137/87
[2024-01-16 07:30] VITALS: BP 141/87
--- NOTE | 2024-01-16 09:39 | NUR ---
RETURNED CALL TO KATELYN AT [facility]; PATIENT MEDICALLY CLEARED. KATELYN WILL DISCUSS WITH DR LEYVA AND NOTIFY US OF TRANSFER TIME.
--- NOTE | 2024-01-16 13:33 | NUR ---
DISCHARGE/SHIFT SUMMARY: A&Ox4. PLEASANT AND COOPERATIVE WITH CARE. CALLS APPROPRIATELY AND IS ABLE TO ADVOCATE NEEDS EFFECTIVELY. AMBULATES INDEPENDENTLY WITHIN ROOM. SBA IN BATHROOM FOR PATIENT SI SAFETY. CONTINENT OF BOTH BOWEL AND BLADDER. MEDS WHOLE WITH FLUIDS. NO C/O PAIN OR DISCOMFORT TODAY BUT DID BEGIN TO C/O ANXIETY JUST [facility] STAFF ARRIVED TO ESCORT HIM TO [facility]. HE ATTRIBUTED A LOT OF HIS ANXIETY TO THE NOISE AND CHAOS OF THE UNIT. [facility] STAFF ASSURED HIM THE U IS MUCH QUIETER AND WILL LIKELY IMPROVE TEHE ANXIETY HE IS EXPERIENCING R/T NOISE. HE DID SEEM TO BE ENCOURAGED BY THIS. ALL BELONGINGS COLLECTED FROM DRAWER, CABINET AND BATHROOM. IV REMOVED BY THIS RN; CATHETER TIP INTACT WITH S/Sx INFx. PATIENT ESCORTED FROM FLOOR BY SECURITY STAFF, KELY, AND U STAFF, NATALIIA. WITH ALL BELONGINGS AND DISCHARGE PACKET @ 1320. TRANSPORTATION PROVIDED BY [facility].
[2024-01-24] MEDS ORDERED: Budeprion Xl300 MG PO (11:11)
[2024-01-24] MEDS ORDERED: LISI20 PO (11:12)
[2024-01-24] MEDS ORDERED: VISBIOME 112.51 EACH PO (11:12)
== END 2024-01-16 13:18 | DRG 917 ==
LOC: ER 08:01 → PCU 08:02 → MEDS 01-07 01:24
PROVIDERS: Emergency Medicine; Family Medicine; Hospitalist; Internal Medicine; Student in an Organized Health Care Education/Training Program; ADMIT Internal Medicine
DX: T45.0X2A Poisoning by antiallergic and antiemetic drugs, intentional self-harm, initial encounter (principal); A41.9 Sepsis, unspecified organism; T75.1XXA Unspecified effects of drowning and nonfatal submersion, initial encounter; N17.9 Acute kidney failure, unspecified; E87.21 Acute metabolic acidosis; M62.82 Rhabdomyolysis; F32.2 Major depressive disorder, single episode, severe without psychotic features; R45.851 Suicidal ideations; S52.612K Displaced fracture of left ulna styloid process, subsequent encounter for closed fracture with nonunion; L03.114 Cellulitis of left upper limb; L03.115 Cellulitis of right lower limb; L03.116 Cellulitis of left lower limb; F41.8 Other specified anxiety disorders; J98.2 Interstitial emphysema; J98.9 Respiratory disorder, unspecified; H53.8 Other visual disturbances; F43.10 Post-traumatic stress disorder, unspecified; H05.229 Edema of unspecified orbit; F12.90 Cannabis use, unspecified, uncomplicated; E04.9 Nontoxic goiter, unspecified; S09.90XA Unspecified injury of head, initial encounter; F10.129 Alcohol abuse with intoxication, unspecified; F17.210 Nicotine dependence, cigarettes, uncomplicated; R68.0 Hypothermia, not associated with low environmental temperature; W01.0XXA Fall on same level from slipping, tripping and stumbling without subsequent striking against object, initial encounter; Z90.89 Acquired absence of other organs
CPT/HCPCS: 36415; 70450; 70487; 70491; 71045; 71046; 71260; 72100; 73120; 80053; 80076; 80320; 81001; 82270; 82550; 82947; 82977; 83605; 83735; 84100; 84443; 85025; 85651; 86140; 87040; 87086; 93005; 93010; 96361; 96365; 96375; 99285-25; A9270; G0378; G0480; J0360; J1644; J1650; J1885; J2020; J2060; J2405; J2543; J2919; J7030; J7050; J7512; Q9967

== ENCOUNTER 2024-01-16 11:10 | Inpatient (IN) | payer OTHER ==
[~2024-01-16 11:10] MED LIST changes: +ACET325 PO; +BACITRACIN ZIN1 EAC1 TOP; +FAMO20 PO; +HYDHCL25 PO; +NEOPOLBACB LEFTEYE; +Nicoderm Cq1 EAC1 TOP; +TOBRADEX ST EYE5 M1 BOTHEYES; +Triamcinolone A15 G4 TOP
[2024-01-16] MEDS ORDERED: OLANZapine ODT 10 MG Tab MM PRN (11:35)
[2024-01-16] MEDS ORDERED: LORazepam 2 MG Tab PO PRN (11:35)
[2024-01-16] MEDS ORDERED: FLU VACC TS2024-25(6MOS UP)/PF 45 MCG/0.5 ML SYRINGE IM ONE (11:35)
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
[2024-01-16 21:12] VITALS: BP 156/95
--- NOTE | 2024-01-17 04:32 | NUR ---
PT IS VISIBLE ON THE UNIT AND INTERACTS APPROPRIATELY WITH PEERS. HYGIENE ADEQUATE. PT REPORTS ANXIETY AND WAS GIVEN PRN ATIVAN AND EDUCATED ABOUT IT. PT IS COMPLIANT WITH MEDICATIONS AND DENIES CURRENT SI/HI AND AVH. CURRENTLY, PT IS IN BED WITH EYES CLOSED RESTING COMFORTABLY IN NAD. RESPIRATIONS EVEN AND UNLABORED. CHECKS DONE Q15.
[2024-01-17 09:02] VITALS: BP 167/100
[2024-01-17] MEDS ORDERED: Bacitracin Zinc Oint 1GRAM UD Packet TOP SCH (12:00)
[2024-01-17] MEDS ORDERED: Nicotine 14 MG PATCH TOP SCH (12:00)
[2024-01-17] MEDS ORDERED: HyDROXyzine HCl 25 MG Tab PO PRN (12:45)
[2024-01-17] MEDS ORDERED: AmLODIPine Besylate 5 MG Tab PO SCH (14:00)
--- NOTE | 2024-01-17 18:02 | NUR ---
SHIFT SUMMARY PT AxOx4. PLEASANT AND COOPERATIVE WITH CARE. PT WAS QUITE WITHDRAWN THIS AM. PT REPORTED FEELING ANXIOUS AND STRESSED THIS AM BUT DENIES SI/HI AND AVH. HOSPITALIST CONSULTED FOR ELEVATED BP. NEW MEDS ORDERED FOR BP AND MDD. PT'S ROOMATE DISCHARGED TODAY. PT REPORTS THAT HIS ROOMATE LEAVING IS ALREADY MAKING HIM FEEL BETTER. PT PARTICIPATED IN GROUP AND SOCIALIZED MINIMALLY ON THE UNIT. PT IS CURRENTLY SITTING IN HIS BED. DENIES ANY NEEDS AT THIS TIME.
[2024-01-17 20:41] VITALS: BP 165/101
[2024-01-17] MEDS ORDERED: BuPROPion HCl SR 100 MG TabCR PO SCH (21:00)
--- NOTE | 2024-01-17 21:52 | NUR ---
Pt is visible on the unit and interacts appropriately with peers. Hygiene adequate. Pt requested this RN speak with his mother regarding his progress and medications, which was done. Pt is motivated for tx and expressed insight that he needs therapy as well as medications. He says he often feels lonely and feels a disconnect from his and lacks peer support. Discussed how Pt might make friends in the community by taking a class, looking for social groups, going to confucianist, etc. Educated Pt about new medication. Pt was compliant with medication and denies SI/HI and AVH. Will continue to monitor Q15.
--- NOTE | 2024-01-18 06:26 | NUR ---
PT IS IN BED WITH EYES CLOSED RESTING COMFORTABLY IN NAD. RESPIRATIONS EVEN AND UNLABORED. CHECKS DONE Q15.
[2024-01-18 08:44] LABS: BASOPHILS PERCENT AUTO 1 % (0-2); EOSINOPHILS ABSOLUTE AUTO 0.63 K/mm3 (0.00-0.68); EOSINOPHILS PERCENT AUTO 4 % (0-6); Hematocrit 41.7 % (37.0-53.0); Hemoglobin 14.1 g/dL (13.5-17.5); IMMATURE GRAN ABSOLUTE AUTO 0.06 K/mm3 (0.00-0.10); IMMATURE GRAN PERCENT AUTO 0 % (0-1); LYMPHOCYTES ABSOLUTE AUTO 2.16 K/mm3 (0.84-5.20); LYMPHOCYTES PERCENT AUTO 14 % (21-46); MONOCYTES ABSOLUTE AUTO 0.91 K/mm3 (0.16-1.47); MONOCYTES PERCENT AUTO 6 % (4-13); Mean Corpuscular HGB 30.6 pg (26.0-34.0); Mean Corpuscular HGB Conc 33.8 g/dL (31.5-36.5); Mean Corpuscular Volume 91 fL (80-100); Mean Platelet Volume 10.6 fL (9.1-12.4); NEUTROPHILS ABSOLUTE AUTO 12.02 K/mm3 (1.96-9.15); NEUTROPHILS PERCENT AUTO 76 % (41-73); Platelet Count 339 K/mm3 (150-400); RDW Coefficient Variation 14.6 % (11.7-14.2); RDW Standard Deviation 48.1 fL (35.1-46.3); Red Blood Cell Count 4.61 M/mm3 (4.30-5.90); White Blood Cell Count 15.88 K/mm3 (4.00-11.30)
[2024-01-18 08:53] VITALS: BP 143/93
[2024-01-18 09:19] LABS: Albumin, Blood 3.6 g/dL (3.4-5.0); Bilirubin, Total 0.9 mg/dL (0.1-1.0); Bun/Creatinine Ratio 14.9 (12.0-20.0); Calcium, Blood 9.1 mg/dL (8.5-10.1); Creatinine, Blood 1.14 mg/dL (0.60-1.20); Globulin, Blood 3.5 g/dL (2.2-4.0); Potassium, Blood 3.8 mmol/L (3.5-5.5); Total Protein, Blood 7.1 g/dL (6.4-8.2)
[2024-01-18] MEDS ORDERED: AmLODIPine Besylate 5 MG Tab PO ONE (12:35)
--- NOTE | 2024-01-18 18:51 | NUR ---
SHIFT SUMMARY PT AxOx4. PLEASANT AND COOPERATIVE WITH CARE. PT HAS BEEN OUT OF HIS ROOM MORE TODAY, SOCIALIZING WITH PEERS AND STAFF. DENIES SI/HI AND AVD. PT REPORTS FEELING MOTIVATED TO "SORT THINGS OUT" BUT ALSO STATES FEELING ANXIOUS ABOUT DISCHARGING. PT HAD HIS PSYCH SOCIAL EVAL TODAY WITH POWDER COATER. HE ALSO HAD FOLLOW UP VISIT FROM HOSPITALIST ON BP. BP MEDS INCREASED. PT IS CURRENTLY SITTING IN ROOM. DENIES ANY NEEDS AT THIS TIME.
[2024-01-18] MEDS ORDERED: Lactobacil 2-S.Thermo-Bifido 1 1 Cap PO SCH (21:00)
--- NOTE | 2024-01-19 04:09 | NUR ---
PATIENT WAS IN ROOM WHEN RN ARRIVED. HE CAME OUT WHEN HE WANTED TO BE IN THE GROUP ROOM, OR WHEN HE HAD REQUESTS. HE WAS PLEASANT AND COOPERATIVE WITH CARES, INCLUDING EVENING MEDICATIONS. HE WAS TIRED, PER HIM, AND WENT TO BED EARLY WHERE HE WAS NOTED TO BE RESTING QUIETLY ON HIS BED WITH EYES CLOSED AND RESPIRATIONS CONFIRMED. HE HAD NO S/SX SUICIDAL IDEATION THIS SHIFT. HE WAS ABLE TO CLEARLY COMMUNICATE THAT HE DOES NOT WANT TO TALK ABOUT LEAVING, BECAUSE "RIGHT NOW, IT'S MAKING ME ANXIOUS TO THINK ABOUT". HE ASKED THIS RESPECTFULLY AND IT WAS HONORED.
[2024-01-19] MEDS ORDERED: AmLODIPine Besylate 5 MG Tab PO SCH (09:00)
[2024-01-19] MEDS ORDERED: Acetaminophen 325 MG TABLET PO PRN (09:05)
[2024-01-19 09:07] VITALS: BP 152/94
[2024-01-19 10:40] VITALS: BP 159/97
[2024-01-19] MEDS ORDERED: Lisinopril 10 MG Tab PO SCH (11:00)
[2024-01-19 14:57] VITALS: BP 146/89
[2024-01-19] MEDS ORDERED: Lisinopril 10 MG Tab PO ONE (16:00)
--- NOTE | 2024-01-19 19:28 | NUR ---
SHIFT SUMMARY PT AxOx4. PLEASANT AND COOPERATIVE WITH CARE. PT HAS BEEN FOLLOWING CARE PLAN INCLUDING TAKING MEDICATION AND ATTENDING GROUP/THERAPY THIS SHIFT. HE DENIES SI/HI AND AVD. HE HAD HOSPITALIST VISIT TODAY TO FOLLOW UP ON BP AND HEADACHE. MED CHANGES IMPLEMENTED. CURRENT PLAN IS EXPECTED DC AFTER THIS WEEKEND. PT IS CURRENTLY WATCHING TV IN GROUP ROOM. DENIES ANY NEEDS AT THIS TIME.
--- NOTE | 2024-01-20 04:02 | NUR ---
PATIENT WAS UP AT THE BEGINNING OF THE SHIFT. HE STATED THAT HE COULD NOT SLEEP IN THE SAME ROOM HIS ROOMMATE, DUE TO ROOMMATE MAKING "TOO MUCH NOISE". PATIENT WAS [facility] AND SPENT HIS TIME THERE MOSTLY RESTING WITH EYES CLOSED AND RESPIRATIONS CONFIRMED. HE WAS PLEASANT AND COOPERATIVE WITH CARES, INCLUDING EVENING MEDICATIONS. HE WAS ABLE TO MAKE NEEDS KNOWN IN A LINEAR MANNER. HE HAD NO S/SX SUICIDAL IDEATION THIS SHIFT.
[2024-01-20] MEDS ORDERED: Lisinopril 20 MG Tab PO SCH (09:00)
[2024-01-20] MEDS ORDERED: buPROPion HCL 150 MG TAB.SR.12H PO SCH (09:00)
[2024-01-20 09:01] VITALS: BP 134/95
--- NOTE | 2024-01-20 13:31 | NUR ---
PT IN GOOD MOOD TODAY. HE ASKED WHEN BREAKFAST GOING TO BE SERVED AND COULD HE GET HIS PILLS. TOLD HIM AT MED ROUNDS HE COULD HAVE HIS PILLS HE WAS GOING INTO DINING AREA WITH THE OTHERS. HE SLEPT IN THE SECLUSION ROOM. LET PATIENT KNOW HE NEEDS TO BE IN GROUPS TODAY. HIS REASON STATING HE WAS IN THE OTHER HOME WAS HE NEED QUIETNESS. CLAIMS HIS ROOM MATE MAKES TO MUCH NOISE WHEN HE SLEEPS. SCRATCHES ON BILATER LEGS HEALING WELL. LOTS OF SCABS BUT NO OPEN WOUNDS. PT IS CALM AND COOPERTIVE DENIES SI. PARTICIPATED IN GROUP THIS MORNING THEN LAID ON HIS BED IN ROOM 606W AND TOOK A NAP. WILL CONTINUE TO MONITOR
--- NOTE | 2024-01-20 17:25 | NUR ---
SHIFT SUMMARY PATIENT HAS BEEN SLEEPING MOST OF THE DAY. GETS UP AT TIMES. REFUSED DINNER TONIGHT. WANTS TO BE LEFT ALONE. HE HAS EAR PLUGS IN RIGHT NOW ALSO. WILL LET HIM SLEEP. WILL CONTINUE TO MONITOR
[2024-01-20 19:29] VITALS: BP 128/98
--- NOTE | 2024-01-21 03:59 | NUR ---
PATIENT WAS AWAKE WATCHING A MOVIE WITH [employer] AT THE BEGINNING OF THE SHIFT. WHEN THE MOVIE ENDED, HE ASKED IF HE COULD SLEEP IN THE UNLOCKED SIDEROOM LIKE HE DID THE PAST TWO NIGHTS. IT WAS APPROVED AND HE STATED "THANK YOU". HE WAS COMPLIANT WITH EVENING MEDICATIONS, AND REQUESTED TYLENOL FOR BILATERAL FOOT PAIN AND ATARAX FOR ITCHING AND ANXIETY. ONCE HE WENT TO LIE ON HIS MATTRESS, HE WAS IN BED RESTING WITH EYES CLOSED AND RESPIRATIONS CONFIRMED. HE HAD NO S/SX SUICIDAL IDEATION NOTED THIS SHIFT.
[2024-01-21] MEDS ORDERED: Nicotine Polacrilex 2 MG Gum PO PRN (09:30)
[2024-01-21 10:06] VITALS: BP 140/110
--- NOTE | 2024-01-21 19:15 | NUR ---
SHIFT SUMMARY PT AA&OX4. PLEASANT AND COOPERATIVE WITH CARE. SPEECH AND EYE CONTACT APPROPRIATE. DENIES SI, AVH. COMPLIANT WITH MEDICATION. UP TO SHOWER, MEALS, AND ACTIVE IN MILLIUE. MOOD IS "OKAY" AFFECT CONGRUENT. PLAN FOR DC TOMORROW OR TUES. PT IS MOTIVATED TO DC. DENIES ANY CURRENT NEEDS. WILL CONTINUE POC.
[2024-01-21 20:21] VITALS: BP 132/90
[2024-01-21] MEDS ORDERED: QUEtiapine Fumarate 100 MG Tab PO SCH (21:00)
--- NOTE | 2024-01-21 22:30 | NUR ---
LEODAN IN ROOM RESTING AT START OF SHIFT. PT EVENTUALLY CAME OUT OF ROOM AND SOCIALIZED WITH PEERS AND STAFF. A&O X 4, APPEARED WELL-GROOMED, HAPPY, CHEERFUL. PT ENDORSED C/O ITCHINESS AND REQUESTED PRN ATARAX; MED GIVEN WITH HS MEDS ALONG WITH TYLENOL FOR 4/10 LEFT FOOT PAIN. PT ALSO SHARED C/O OF DIFFICULTY SLEEPING DUE TO ROOMMATES SNORING AND NIGHT TERRORS. EAR PLUGS OFFERED BUT PT STATED I ALREADY HAVE SOME. PT REPORTED HAVING A GOOD DAY, AND IS ANTICIPATING DISCHARGE. PT CURRENTLY IN BED APPEARING ASLEEP CHEST RISING, IN NAD. SAFETY MEASURES MAINTAINED VIA Q15 MINUTE CHECKS.
--- NOTE | 2024-01-22 00:08 | NUR ---
2319 [facility] NOTIFIED THIS RN AND PLASTIC CABLEMAKING MACHINE OPERATOR, PRATIMA Ramon, THAT PT WAS OBSERVED TO BE ON FLOOR LAYING ON SIDE. PT APPEARED CLAMMY, ASHY, AND REPORTED HE FELT NAUSEOUS. PT STATED, I WAS URINATING AND BEFORE I WAS ABOUT TO BE DONE, I STARTED TO FEEL DIZZY. PT REPORTED I BLACKED OUT, AND GRABBED THE BATHROOM DOOR. VS: BP 69/41, P 60, RR 20 CBG 126. PT ALSO NOTED TO HAVE OPEN ABRASION TO RT KNEE REDDENED. EMS CALLED TO TAKE TO [facility] ED FOR EVAL AND TREATMENT. PT TAKEN OFF UNIT BY EMS AT 2355. DR. BARBOUR NOTIFIED [phone]. MESSAGE SENT TO DIRECTOR TO NOTIFY OF SITUATION AT 0006.
[2024-01-24] MEDS ORDERED: Budeprion Xl300 MG PO (11:11)
[2024-01-24] MEDS ORDERED: VISBIOME 112.51 EACH PO (11:12)
[2024-01-24] MEDS ORDERED: LISI20 PO (11:12)
== END 2024-01-21 23:55 | disposition short-term general hospital (02) | DRG 885 ==
LOC: BHU 11:10
PROVIDERS: Internal Medicine; ADMIT Psychiatry & Neurology Psychiatry
DX: F33.2 Major depressive disorder, recurrent severe without psychotic features (principal); A41.9 Sepsis, unspecified organism; N17.9 Acute kidney failure, unspecified; M62.82 Rhabdomyolysis; R45.851 Suicidal ideations; L03.114 Cellulitis of left upper limb; Z59.00 Homelessness unspecified; F43.21 Adjustment disorder with depressed mood; F43.10 Post-traumatic stress disorder, unspecified; F17.210 Nicotine dependence, cigarettes, uncomplicated; I10 Essential (primary) hypertension; F12.90 Cannabis use, unspecified, uncomplicated; T45.0X2A Poisoning by antiallergic and antiemetic drugs, intentional self-harm, initial encounter; Z90.89 Acquired absence of other organs; Z98.890 Other specified postprocedural states; Z88.1 Allergy status to other antibiotic agents; Z88.5 Allergy status to narcotic agent; Z87.442 Personal history of urinary calculi
CPT/HCPCS: 36415; 80053; 82947; 85025; A9270

== ENCOUNTER 2024-01-22 00:07 | Emergency (ER) | payer OTHER ==
[~2024-01-22] VITALS: Ht 185.4 cm; Wt 83.9 kg
[2024-01-22 00:23] LABS: BASOPHILS ABSOLUTE AUTO 0.08 K/mm3 (0.00-0.23); BASOPHILS PERCENT AUTO 1 % (0-2); EOSINOPHILS ABSOLUTE AUTO 0.41 K/mm3 (0.00-0.68); EOSINOPHILS PERCENT AUTO 5 % (0-6); Hematocrit 39.8 % (37.0-53.0); Hemoglobin 13.5 g/dL (13.5-17.5); IMMATURE GRAN ABSOLUTE AUTO 0.02 K/mm3 (0.00-0.10); IMMATURE GRAN PERCENT AUTO 0 % (0-1); LYMPHOCYTES ABSOLUTE AUTO 2.14 K/mm3 (0.84-5.20); LYMPHOCYTES PERCENT AUTO 24 % (21-46); MONOCYTES PERCENT AUTO 9 % (4-13); Mean Corpuscular HGB 30.5 pg (26.0-34.0); Mean Corpuscular HGB Conc 33.9 g/dL (31.5-36.5); Mean Corpuscular Volume 90 fL (80-100); Mean Platelet Volume 10.6 fL (9.1-12.4); NEUTROPHILS ABSOLUTE AUTO 5.57 K/mm3 (1.96-9.15); NEUTROPHILS PERCENT AUTO 62 % (41-73); Platelet Count 218 K/mm3 (150-400); RDW Coefficient Variation 14.4 % (11.7-14.2); RDW Standard Deviation 47.7 fL (35.1-46.3); Red Blood Cell Count 4.42 M/mm3 (4.30-5.90); White Blood Cell Count 9.02 K/mm3 (4.00-11.30)
[2024-01-22 00:45] LABS: Albumin, Blood 3.3 g/dL (3.4-5.0); Albumin/Globulin Ratio 0.9 (0.8-1.8); Bilirubin, Total 0.4 mg/dL (0.1-1.0); Bun/Creatinine Ratio 18.2 (12.0-20.0); Calcium, Blood 9.6 mg/dL (8.5-10.1); Creatinine, Blood 1.32 mg/dL (0.60-1.20); Globulin, Blood 3.6 g/dL (2.2-4.0); Potassium, Blood 4.2 mmol/L (3.5-5.5); Total Protein, Blood 6.9 g/dL (6.4-8.2)
[2024-01-22] MEDS ORDERED: NS 1,000 ML IV SCH (01:00)
[2024-01-22 07:45] VITALS: BP 133/82
== END 2024-01-22 13:18 | disposition home or self-care (01) ==
LOC: ER 00:07
PROVIDERS: Student in an Organized Health Care Education/Training Program
DX: R55 Syncope and collapse (principal); S80.812A Abrasion, left lower leg, initial encounter; S80.811A Abrasion, right lower leg, initial encounter; I95.9 Hypotension, unspecified; F17.210 Nicotine dependence, cigarettes, uncomplicated; W18.30XA Fall on same level, unspecified, initial encounter; Z79.899 Other long term (current) drug therapy; Z88.5 Allergy status to narcotic agent; Z88.1 Allergy status to other antibiotic agents
CPT/HCPCS: 80053; 84484; 85025; 93005; 93010; 96360; 99285-25; J7030

== ENCOUNTER 2024-01-22 08:36 | Inpatient (IN) | payer OTHER ==
[~2024-01-22] VITALS: Ht 185.4 cm; Wt 84.0 kg
[2024-01-22] MEDS ORDERED: FLU VACC TS2024-25(6MOS UP)/PF 45 MCG/0.5 ML SYRINGE IM ONE (13:45)
[2024-01-22] MEDS ORDERED: Acetaminophen 325 MG TABLET PO PRN (13:45)
[2024-01-22] MEDS ORDERED: Melatonin 3 MG Tab PO PRN (13:45)
[2024-01-22] MEDS ORDERED: HydrOXYzine Pamoate 50 MG Cap PO PRN (13:45)
[2024-01-22 14:56] VITALS: BP 138/98
--- NOTE | 2024-01-22 15:50 | NUR ---
PT REPORTED PAIN TO L KNEE ABRAISION. APPLIED BACITRACIN AND COVERED W/ BANDAIDS. ALSO APPLIED BACITRACIN TO OTHER SCRAPES AND ABRAISIONS TO BL SHINS.
--- NOTE | 2024-01-22 15:52 | NUR ---
ADMIT: PT ARRIVED TO [facility]MIT AFTER TRANSFER TO ER ON 01/20 FOR SYNCOPAL EPISODE. MEDICALLY CLEARED AND ACCEPTED TO UNIT. PT PREVIOUS ADMISSION FOLLOW SUICIDE ATTEMPT AND BEING F[place]. PT NOW DENIES SI/HI OR AVH. HE STATES THAT HE MIGHT BE ABLE TO STAY WITH HIS EX- UPON DISCHARGE BUT ISN'T SURE. STATES THAT THEY ARE JOING OWNERS OF THEIR TRAILER BUT THE PROPERTY BELONGS TO HIS FATHER IN LAW. HE IS UNSURE IF HIS FATHER IN LAW WILL BE OK WITH HIM STAYING THERE. PT ORIENTED TO THE DEPT. CALL PLACED TO HOSPITALIST FOR MEDICAL CONSULT.
[2024-01-22 17:06] VITALS: BP 143/99
--- NOTE | 2024-01-22 18:10 | NUR ---
HOSPITALIST HAS BEEN TO SEE PT. NO NEW ORDERS NOTED AT THIS TIME. PT HAS BEEN PRESENT ON THE UNIT AND ACTIVE IN [place].
--- NOTE | 2024-01-22 18:13 | NUR ---
Pt updated information Pt readmited to our unit today. While away he connected with his friend Sherlyn who told him he may be able to go back to his Rv with Ex temporarily. He is confirming this and will update tomorrow to let us know if this would be approved. I have also reached out to [facility] to see about getting him scheduled to have him established with them Left anisa will follow up tomorrow to ensure he is scheduled prior to discharge. He is also hoping to stay with [place] and stated his pcp had made a referral to [facility] already will be following up with Transition of Care child care team lead Serafin tomorrow to ensure this is scheduled prior to his discharge.
--- NOTE | 2024-01-22 19:57 | NUR ---
COURT MONTOYA, REPORTED TO THIS RN PTs BP reading of 141/118, P91 SpO2 99. This RN contacted evening hospitalist, Doug, and updated on Pts VS. NO N.O received d/t pt asymptomatic. Instructed to call back if PT starts experiencing SOB, CP.
[2024-01-22 20:04] VITALS: BP 141/118
--- NOTE | 2024-01-22 23:31 | NUR ---
LEODAN SITTING IN DAYROOM WITH PEERS AND STAFF WATCHING MOVIE, APPEARS WELL-GROOMED, A&O X 4. SEE PREVIOUS NOTE RE: BP. PT STATED "I AM GLAD TO BE BACK," WHEN ASKED HOW DAY WAS. DENIES SI/HI/AVTH AND PAIN. ENDORSED FEELING ITCHY; PRN VISTARIL GIVEN ORDERED BY BELTRAN SUAZO. PT GIVEN INSTRUCTION TO SIT ON SIDE OF BED BEFORE STANDING AND TO LOOK FORWARD WHEN USING THE RESTROOM. PT VERBALIZED UNDERSTANDING. PT DENIED ALL OTHER CONCERNS. PT CALM, COOPERATIVE WITH ALL CARE. PT CURRENTLY IN ROOM APPEARING TO SLEEP WITH CHEST RISING, IN NAD. SAFETY MEASURES MAINTAINED VIA Q15 MIN CHECKS.
--- NOTE | 2024-01-23 07:49 | NUR ---
PT BELONGINGS WERE KEPT IN DEPT WHEN TRANSFERED TO ER ON PREVIOUS ADMISSION. SEE PREVIOUS ADMIT BELONGINGS CHECK LIST.
[2024-01-23 08:52] VITALS: BP 149/115
--- NOTE | 2024-01-23 08:55 | NUR ---
PT ALERT, ORIENTED AND COOPERATIVE WITH CARE. COMPLIANT WITH MEDICATIONS. DENIES SI, HI OR AVH. STATES THAT HE FEELS LIKE HE IS READY TO DISCHARGE. STATES THAT HE PLANS TO GO BACK TO HIS PREVIOUS LIVING SITUATION AND MOVING OUT OF STATE IS A FUTURE GOAL. STATES THAT HE HAS FOLLOW UP SCHEDULED WITH HIS PCP AND PLANS TO CONNECT WITH [facility] ONCE HE IS RELEASED. L MENENDEZ ABRASION CLEANED AND DRESSED BY TELMA BLANC. PT STATES THAT HE WOULD LIKE TO HAVE PROBIOTICS AND SOMETHING FOR ITCHING. STATES THAT HE TALKED TO THE MEDICAL DR. ABOUT ITCHING YESTERDAY DURING THE VISIT AND WAS TOLD THAT IT WAS LIKELY R/T LAUNDRY SOAP. OFFERED PT PAPER SCRUBS THAT HE DECLINED.
[2024-01-23] MEDS ORDERED: Lisinopril 20 MG Tab PO SCH (09:00)
[2024-01-23] MEDS ORDERED: buPROPion HCL 150 MG TAB.SR.12H PO SCH (09:00)
[2024-01-23] MEDS ORDERED: Lactobacil 2-S.Thermo-Bifido 1 1 Cap PO SCH (10:00)
[2024-01-23] MEDS ORDERED: Triamcinolone Acet 0.1% Ointment 15 GM TOP SCH (10:00)
[2024-01-23 10:05] LABS: Bun/Creatinine Ratio 19.3 (12.0-20.0); Calcium, Blood 9.8 mg/dL (8.5-10.1); Creatinine, Blood 1.14 mg/dL (0.60-1.20); Potassium, Blood 4.9 mmol/L (3.5-5.5)
[2024-01-23 12:09] VITALS: BP 132/98
--- NOTE | 2024-01-23 12:10 | NUR ---
DISCHARGE INFORMATION: CALL FROM CHRIS (RELEASE IN PLACE) STATES THAT PT WILL HAVE A PLACE TO DISCHARGE TO. STATES THAT HE WILL BE ABLE TO GO BACK TO HIS EX-'S. STATES THAT SHE HAS LEFT FOR A LITTLE WHILE IN ORDER FOR PT TO HAVE A PLACE TO GO.
--- NOTE | 2024-01-23 13:00 | NUR ---
PT REQUESTING TO GO HOME TODAY. CALL PLACED TO PROVIDER, PLAN FOR DISCHARGE ON 01/23. PT UPDATED AND AGREEABLE. EXPLAINED NEED TO HAVE FOLLOW UP APPOINTMENTS AND DISCHARGE PLAN FULLY IN PLACE. MHA NOTED ON VS THAT HR VARIED. HR NOTED AT 84 BPM WITH REGULAR PLETH ON BIOX. PT STATES THAT HE THINKS HIS HR WAS ELEVATED BECAUSE HE WAS FRUSTRATED ABOUT NOT BEING ABLE TO GO HOME. PT CALM AND COOPERATIVE AND AGREEABLE TO PLAN AT THIS TIME.
--- NOTE | 2024-01-23 13:23 | NUR ---
Pt Discharge Appointments Scheduled Pt has discharge appointments scheduled at [facility] with a Therapist Rita Ann on 02/06 at 1pm. He had a previous scheduled psych - evaluation scheduled for Feb 14 with Alley Gamez. He also has a previously scheduled Hospital follow up from Medial Floor discharge scheduled for tomorrow at 2:30pm with Dr Pisano at [place]. Have updated supplier quality engineer on this matter.
--- NOTE | 2024-01-23 13:48 | NUR ---
Pt Denture Information Pt is assigned to [facility] to get new Dentures.I have reached out to [facility] to see about switching patients provider to be Shannon so he can get into there Denture lab. I will be hearing back from [facility] [employer] Consultant Kiha Phan if she was able to switch this for the patient so the appointment can be made for the patient.
--- NOTE | 2024-01-23 18:24 | NUR ---
SHIFT SUMMARY: PT CALM, COOPERATIVE AND ENGAGED. PT COMPLIANT WITH MEDICATIONS. DENIES SI, HI AND AVH. HE IS LOOKING FORWARD TO DISCHARGING TOMORROW. HIS FRIEND CHRIS WILL BE DROPPING OFF HIS CAR AND KEYS TOMORROW. ENGAGED IN GROUP AND UNIT MILIEU.
--- NOTE | 2024-01-23 21:18 | NUR ---
LEODAN SITTING IN DAYROOM WITH PEERS AND STAFF WATCHING MOVIE, APPEARS WELL-GROOMED, A&O X 4. PT STATED, "I AM HAPPY AND NERVOUS ABOUT GOING HOME TOMORROW." PT IS CALM, COOPERATIVE AND COMPLIANT WITH ALL CARE. DENIED SI/HI/AVTH AND PAIN. ENDORSED FEELING ITCHY; PRN VISTARIL GIVEN ORDERED . PT DENIED ALL OTHER CONCERNS. PT CURRENTLY IN ROOM RESTING WITH CHEST RISING, IN NAD. SAFETY MEASURES MAINTAINED VIA Q15 MIN CHECKS.
[2024-01-23 22:10] VITALS: BP 139/97
--- NOTE | 2024-01-24 04:05 | NUR ---
PT AWOKE IN THE MIDDLE OF THE NIGHT AND REQUESTED TO GO TO SENSORY ROOM D/T ROMMATE, AND FEELING ANXIOUS ABOUT D/C. PT ENDED UP FALLING ASLEEP IN THE ROOM AND IS STILL CURRENTLY SLEEPING, CHEST RISING IN NAD.
[2024-01-24 08:26] VITALS: BP 139/104
[2024-01-24] MEDS ORDERED: Budeprion Xl300 MG PO ×2 (11:11)
[2024-01-24] MEDS ORDERED: LISI20 PO ×2 (11:12)
[2024-01-24] MEDS ORDERED: VISBIOME 112.51 EACH PO ×2 (11:12)
--- NOTE | 2024-01-24 13:45 | NUR ---
PT DISCHARGED [id number]. GIVEN DISCHARE INSTRUCTIONS, PRESCRIPTIONS FAXED TO [facility] IN [place]. BELONGINGS RETURNED TO [facility]. PATIENT ALERT AND ORIENTED. IS IN A HAPPY MOOD. IS EXCITED TO BE LEAVING. PT WALKED TO HIS CAR AND HE DROVE HIMSELF HOME.
--- NOTE | 2024-01-24 14:11 | NUR ---
PATIENT DISCHARGED AT 1240, ALL BELONGINGS AND SAFE ITEMS RETURNED
== END 2024-01-24 12:33 | disposition home or self-care (01) | DRG 885 ==
LOC: BHU 08:36
PROVIDERS: Internal Medicine; ADMIT Student in an Organized Health Care Education/Training Program
DX: F33.2 Major depressive disorder, recurrent severe without psychotic features (principal); F41.9 Anxiety disorder, unspecified; F43.21 Adjustment disorder with depressed mood; I10 Essential (primary) hypertension; Z90.89 Acquired absence of other organs; Z98.890 Other specified postprocedural states; Z91.51 Personal history of suicidal behavior
CPT/HCPCS: 36415; 80048; A9270

== ENCOUNTER → 2024-01-31 | Outpatient (CLI) | payer OTHER ==
[~2024-01-31] MED LIST changes: +Budeprion Xl300 MG PO; +LISI20 PO; +VISBIOME 112.51 EACH PO
== END ==
LOC: LAB SHORT 10:20 → LAB 10:20
DX: L08.9 Local infection of the skin and subcutaneous tissue, unspecified (principal)
CPT/HCPCS: 87070; 87075; 87077; 87205